=== PATIENT | female | born 2000 | race Caucasian/White ===

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

== ENCOUNTER 2020-05-17 14:27 | Emergency (ER) | payer OTHER ==
[2020-05-17 15:04] VITALS: BP 137/85; PULSE 91; RESP 20; TEMP 98.9
--- NOTE | 2020-05-17 15:35 | ED ---
General Adult HPI - General Chief complaint: Upper Respiratory Infection Stated complaint: COVID Test Time Seen by Provider: 05/17/20 15:00 Source: patient Mode of arrival: ambulatory Limitations: no limitations - History of Present Illness Initial comments: Patient is a 20-year-old female with no past medical history who presents to the emergency department requesting Covid testing. States that for the past 3 days the patient has suffered from fatigue, body aches, nonproductive cough, nasal congestion and a slight headache. She reports that her cousin has the same symptoms and was told that she is Covid positive. She has been in close contact with her on multiple occasions. Patient reported these symptoms to her boss to request that she go to the emergency department to get tested. Also reports to a loss of sense of smell. Denies any chest pain. No shortness of breath. No abdominal pain. Denies diarrhea, constipation, melenic stools or hematochezia. No changes or urination. No nausea or vomiting. Good by mouth intake. No concern for . No other alleviating, precipitating or modifying factors - Related Data Home Medications Medication Instructions Recorded Confirmed No Known Home Medications 09/22/17 08/17/18 Allergies Allergy/AdvReac Type Severity Reaction Status Date / Time No Known Allergies Allergy Verified 05/17/20 15:04 Review of Systems ROS Statement: Those systems with pertinent positive or pertinent negative responses have been documented in the HPI. ROS Other: All systems not noted in ROS Statement are negative. Past Medical History Past Medical History: No Reported History History of Any Multi-Drug Resistant Organisms: None Reported Past Surgical History: No Surgical Hx Reported Past Psychological History: No Psychological Hx Reported Smoking Status: Never smoker Past Alcohol Use History: None Reported Past Drug Use History: None Reported General Exam Limitations: no limitations General appearance: alert, in no apparent distress Head exam: Present: atraumatic, normocephalic, normal inspection Eye exam: Present: normal appearance, PERRL, EOMI. Absent: scleral icterus, conjunctival injection, periorbital swelling ENT exam: Present: normal exam, mucous membranes moist Neck exam: Present: normal inspection. Absent: tenderness, meningismus, lymphadenopathy Respiratory exam: Present: normal lung sounds bilaterally. Absent: respiratory distress, wheezes, rales, rhonchi, stridor Cardiovascular Exam: Present: regular rate, normal rhythm, normal heart sounds. Absent: systolic murmur, diastolic murmur, rubs, gallop, clicks GI/Abdominal exam: Present: soft, normal bowel sounds. Absent: distended, tenderness, guarding, rebound, rigid Extremities exam: Present: normal inspection, full ROM, normal capillary refill. Absent: tenderness, pedal edema, joint swelling, calf tenderness Back exam: Present: normal inspection Neurological exam: Present: alert, oriented X3, CN II-XII intact Psychiatric exam: Present: normal affect, normal mood Skin exam: Present: warm, dry, intact, normal color. Absent: rash Course Vital Signs 05/17/20 05/17/20 15:01 15:30 Temperature 98.9 F Pulse Rate 91 Respiratory 20 20 Rate Blood Pressure 137/85 O2 Sat by Pulse 98 Oximetry Medical Decision Making - Medical Decision Making Upon arrival patient is placed in room 22. There are history of physical exam was performed. No signs of respiratory distress. Patient has clear breath sounds. She is requesting Covid testing so that she may return to work. Swab was performed. Patient will be discharged home at this time. She is given recommendations for a primary care physician as she does not have one. Recommended she take Tylenol for fevers. Quarenteen herself until she has results of her Covid test or remains symptomatic. Return to the emergency room for any new or worsening symptoms. Patient agreed to the treatment plan and is discharged home stable condition Disposition Clinical Impression: Cough, Acute upper respiratory infection Disposition: HOME SELF-CARE Condition: Stable Instructions (If sedation given, give patient instructions): Upper Respiratory Infection (ED) Additional Instructions: Please await the results of your covid test. Quarantine yourself until your results are back and your symptoms improve. Take Tylenol for fevers. Return to the ED for any new or worsening symptoms. Is patient prescribed a controlled substance at d/c from ED?: No Referrals: None,Stated [Primary Care Provider] - 1-2 days Monique Myers MD [REFERRING] - 1-2 days Time of Disposition: 15:34
== END 2020-05-17 15:53 | disposition home or self-care (01) ==
LOC: EC 14:27
DX: U07.1 COVID-19 (principal)
CPT/HCPCS: 99284; U0003

== ENCOUNTER 2020-10-22 18:00 | Emergency (ER) | payer OTHER ==
[2020-10-22 18:43] VITALS: RESP 18
[2020-10-22 20:35] LABS: Appearance,Urine Clear (Clear); Bilirubin,Urine Negative (Negative); Blood,Urine Negative (Negative); Color,Urine Light Yellow; Glucose,Urine (UA) Negative (Negative); Ketones,Urine Negative (Negative); Leukocyte Esterase,Urine Negative (Negative); Nitrite,Urine Negative (Negative); PH, Urine 7.5 (5.0-8.0); Protein,Urine Negative (Negative); Specific Gravity,Urine 1.011 (1.001-1.035); Urobilinogen,Urine <2.0 mg/dL (<2.0)
[2020-10-22 21:32] LABS: ALT 13 U/L (4-34); AST 29 U/L (14-36); African American GFR (CKD) >90 (>60 ml/min/1.73 sqM); Albumin 4.4 g/dL (3.5-5.0); Alkaline Phosphatase 65 U/L (38-126); Anion Gap 8 mmol/L; Blood Urea Nitrogen 8 mg/dL (7-17); Calcium 9.2 mg/dL (8.4-10.2); Carbon Dioxide 25 mmol/L (22-30); Chloride 103 mmol/L (98-107); Glucose 92 mg/dL (74-99); Non-African American GFR(CKD) >90 (>60 ml/min/1.73 sqM); Potassium 4.2 mmol/L (3.5-5.1); Sodium 136 mmol/L (137-145); Total Bilirubin 0.5 mg/dL (0.2-1.3); Total Protein 7.7 g/dL (6.3-8.2)
[2020-10-22 21:39] LABS: HCT 41.3 % (34.0-46.0); HGB 14.2 gm/dL (11.4-16.0); MCHC 34.5 g/dL (31.0-37.0); RBC 4.75 m/uL (3.80-5.40); RDW 11.7 % (11.5-15.5); WBC 4.6 k/uL (3.8-10.6)
--- NOTE | 2020-10-22 22:12 | ED ---
Nausea/Vomiting/Diarrhea HPI - General Chief complaint: Nausea/Vomiting/Diarrhea Stated complaint: Adb pain Time Seen by Provider: 10/22/20 20:06 Source: patient Mode of arrival: ambulatory Limitations: no limitations - History of Present Illness Initial comments: 20yo with hx of anxieyt presenting for diarrhea increased x 1 week. Patient states that she has struggled with diarrhea chronically for the past few months. Patient states that for the past week it has increased and been more consistent. Patient denies fevers she states she does have occasional abdominal cramping that was worse this afternoon. He states he currently has decided against episodic. Patient denies any localized abdominal pain. She has a vaginal bleeding concern for she denies any nausea vomiting, or dark stools. She states one BM this week had a "vandana" of blood. Patient denies any gross hematuria dysuria urgency or frequency. She denies any large amounts of rectal bleeding. Patient has a known history of ulcerative colitis or Crohn's disease. Patient denies any upper respiratory symptoms. Remaining review of systems negative upon arrival patient appears well and nontoxic no acute distress. - Related Data Home Medications Medication Instructions Recorded Confirmed No Known Home Medications 09/22/17 10/22/20 Allergies Allergy/AdvReac Type Severity Reaction Status Date / Time No Known Allergies Allergy Verified 10/22/20 21:19 Review of Systems ROS Statement: Those systems with pertinent positive or pertinent negative responses have been documented in the HPI. ROS Other: All systems not noted in ROS Statement are negative. Past Medical History Past Medical History: No Reported History History of Any Multi-Drug Resistant Organisms: None Reported Past Surgical History: No Surgical Hx Reported Past Psychological History: Anxiety, Depression Smoking Status: Never smoker Past Alcohol Use History: Occasional Past Drug Use History: None Reported General Exam - General Exam Comments Initial Comments: General: The patient is awake and alert, in no distress Eye: +3 mm pupils are equal, round and reactive to light, extra-ocular movements are intact. No nystagmus. There is normal conjunctiva bilaterally. No signs of icterus. Ears, nose, mouth and throat: There are moist mucous membranes and no oral lesions. Neck: The neck is supple, there is no tenderness or JVD. Cardiovascular: There is a regular rate and rhythm. No murmur, rub or gallop is appreciated. Respiratory: Lungs are clear to auscultation, respirations are non-labored, breath sounds are equal. No wheezes, stridor, rales, or rhonchi. Gastrointestinal: [Soft, non-distended, non-tender abdomen without masses or organomegaly noted. There is no rebound or guarding present. Musculoskeletal: Normal ROM, no tenderness. Strength 5/5. Sensation intact. Radial and DP pulses equal bilaterally 2+. Neurological: A&O x 3. CN II-XII intact grossly, There are no obvious motor or sensory deficits. Coordination appears grossly intact. Speech is normal. Skin: Skin is warm and dry and no rashes or lesions are noted. Psychiatric: Cooperative, appropriate mood & affect, normal judgment. Limitations: no limitations Course Vital Signs 10/22/20 10/22/20 18:39 22:15 Temperature 98.1 F 97.9 F Pulse Rate 90 86 Respiratory 18 18 Rate Blood Pressure 106/73 115/68 O2 Sat by Pulse 100 Oximetry Medical Decision Making - Medical Decision Making Abdominal exam benign. Patient's vital signs within acceptable limits. She is afebrile. She denies any grossly bloody stools. Patient HgB stable. Patient unable to provide sample. UA unremarkable. At this time feel patient is stable for discharge with outpatient GI follow-up and discussed the case with attending provider who is agreeable to this care plan as well. - Lab Data Result diagrams: 10/22/20 21:18 10/22/20 21:18 Lab Results 10/22/20 10/22/20 10/22/20 Range/Units 20:26 20:26 21:18 WBC 4.6 (3.8-10.6) k/uL RBC 4.75 (3.80-5.40) m/uL Hgb 14.2 (11.4-16.0) gm/dL Hct 41.3 (34.0-46.0) % MCV 87.0 (80.0-100.0) fL MCH 30.0 (25.0-35.0) pg MCHC 34.5 (31.0-37.0) g/dL RDW 11.7 (11.5-15.5) % Plt Count (150-450) k/uL MPV 15.0 Neutrophils % (Manual) 41 % Band Neuts % (Manual) 8 % Lymphocytes % (Manual) 40 % Monocytes % (Manual) 11 % Neutrophils # (Manual) 2.20 (1.3-7.7) k/uL Lymphocytes # (Manual) 1.84 (1.0-4.8) k/uL Monocytes # (Manual) 0.51 (0-1.0) k/uL Nucleated RBCs 0 (0-0) /100 WBC Manual Slide Review Performed Sodium (137-145) mmol/L Potassium (3.5-5.1) mmol/L Chloride (98-107) mmol/L Carbon Dioxide (22-30) mmol/L Anion Gap mmol/L BUN (7-17) mg/dL Creatinine (0.52-1.04) mg/dL Est GFR (CKD-EPI)AfAm (>60 ml/min/1.73 sqM) Est GFR (CKD-EPI)NonAf (>60 ml/min/1.73 sqM) Glucose (74-99) mg/dL Calcium (8.4-10.2) mg/dL Total Bilirubin (0.2-1.3) mg/dL AST (14-36) U/L ALT (4-34) U/L Alkaline Phosphatase (38-126) U/L Total Protein (6.3-8.2) g/dL Albumin (3.5-5.0) g/dL Urine Color Light Yellow Urine Appearance Clear (Clear) Urine pH 7.5 (5.0-8.0) Ur Specific [place] 1.011 (1.001-1.035) Urine Protein Negative (Negative) Urine Glucose (UA) Negative (Negative) Urine Ketones Negative (Negative) Urine Blood Negative (Negative) Urine Nitrite Negative (Negative) Urine Bilirubin Negative (Negative) Urine Urobilinogen <2.0 (<2.0) mg/dL Ur Leukocyte Esterase Negative (Negative) Urine HCG, Qual Not Detected (Not Detectd) 10/22/20 Range/Units 21:18 WBC (3.8-10.6) k/uL RBC (3.80-5.40) m/uL Hgb (11.4-16.0) gm/dL Hct (34.0-46.0) % MCV (80.0-100.0) fL MCH (25.0-35.0) pg MCHC (31.0-37.0) g/dL RDW (11.5-15.5) % Plt Count (150-450) k/uL MPV Neutrophils % (Manual) % Band Neuts % (Manual) % Lymphocytes % (Manual) % Monocytes % (Manual) % Neutrophils # (Manual) (1.3-7.7) k/uL Lymphocytes # (Manual) (1.0-4.8) k/uL Monocytes # (Manual) (0-1.0) k/uL Nucleated RBCs (0-0) /100 WBC Manual Slide Review Sodium 136 L (137-145) mmol/L Potassium 4.2 (3.5-5.1) mmol/L Chloride 103 (98-107) mmol/L Carbon Dioxide 25 (22-30) mmol/L Anion Gap 8 mmol/L BUN 8 (7-17) mg/dL Creatinine 0.49 L (0.52-1.04) mg/dL Est GFR (CKD-EPI)AfAm >90 (>60 ml/min/1.73 sqM) Est GFR (CKD-EPI)NonAf >90 (>60 ml/min/1.73 sqM) Glucose 92 (74-99) mg/dL Calcium 9.2 (8.4-10.2) mg/dL Total Bilirubin 0.5 (0.2-1.3) mg/dL AST 29 (14-36) U/L ALT 13 (4-34) U/L Alkaline Phosphatase 65 (38-126) U/L Total Protein 7.7 (6.3-8.2) g/dL Albumin 4.4 (3.5-5.0) g/dL Urine Color Urine Appearance (Clear) Urine pH (5.0-8.0) Ur Specific [place] (1.001-1.035) Urine Protein (Negative) Urine Glucose (UA) (Negative) Urine Ketones (Negative) Urine Blood (Negative) Urine Nitrite (Negative) Urine Bilirubin (Negative) Urine Urobilinogen (<2.0) mg/dL Ur Leukocyte Esterase (Negative) Urine HCG, Qual (Not Detectd) Disposition Clinical Impression: Diarrhea, Abdominal cramping Disposition: HOME SELF-CARE Condition: Good Instructions (If sedation given, give patient instructions): Acute Nausea and Vomiting (ED), Acute Diarrhea (ED) Additional Instructions: Please use medication as discussed. Please follow-up with family doctor in the next 2 days, recommend outpatient GI in the next . Please return to emergency room if the symptoms increase or worsen or for any other concerns. Is patient prescribed a controlled substance at d/c from ED?: No Referrals: None,Stated [Primary Care Provider] - 1-2 days Eric Kent MD [STAFF PHYSICIAN] - 1-2 days Time of Disposition: 22:11
[2020-10-22 22:24] LABS: Band Neutrophils % 8 %; Lymphocytes # (M) 1.84 k/uL (1.0-4.8); Monocytes # (M) 0.51 k/uL (0-1.0); Neutrophils % (M) 41 %; Nucleated Red Blood Cells 0 /100 WBC (0-0); Total Cells Counted 100
[2020-10-22 22:25] VITALS: BP 115/68; PULSE 86; TEMP 97.9
== END 2020-10-22 22:15 | disposition home or self-care (01) ==
LOC: EC 18:00
DX: R19.7 Diarrhea, unspecified (principal); R10.9 Unspecified abdominal pain; R11.2 Nausea with vomiting, unspecified; F41.9 Anxiety disorder, unspecified; F32.9 Major depressive disorder, single episode, unspecified
CPT/HCPCS: 36415; 80053; 81003; 81025; 85025; 99284

== ENCOUNTER 2020-12-17 10:13 | Day surgery (SDC) | payer BC ==
[2020-12-13 10:07] VITALS: BMI 21.9
[~2020-12-17 10:13] MED LIST: LACTATED RINGERS 1,000 ML IV SCH; ONDANSETRON 4 MG/2 ML VIAL IVP PRN
[2020-12-17 11:00] VITALS: RESP 16; TEMP 98.6
[2020-12-17] MEDS ORDERED: LIDOCAINE 1% (10MG/ML) FOR IV START INTRADERMA ONE (11:10)
[2020-12-17] MEDS ORDERED: PROPOFOL 10 MG/ML 20 ML VIAL IV ONE (11:41)
[2020-12-17] MEDS ORDERED: LIDOCAINE 1% INJ 10MG/ML (20 ML MDV) ONE (11:41)
--- NOTE | 2020-12-17 12:10 | P.PCN ---
Date of Procedure: 12/17/20 Description of Procedure: BRIEF HISTORY: Patient is a 20-year-old female presenting for outpatient colonoscopy for evaluation of symptoms of change in bowel habits. Patient reports worsening constipation was seen in the outpatient setting reporting going weeks without bowel movements. She was started on MiraLAX therapy which she is currently taking daily and reporting approximately 2 bowel movements per week. PROCEDURE PERFORMED: Colonoscopy. PREOPERATIVE DIAGNOSIS: Change in bowel habits, no prior colonoscopy. ESTIMATED BLOOD LOSS: Minimal. IV sedation per Anesthesia. PROCEDURE: After informed consent was obtained, the patient, was brought into the endoscopy unit. IV sedation was administered by Anesthesia under continuous monitoring. Digital rectal examination was normal. Initially the Olympus CF-190 flexible video colonoscope was then inserted in the rectum, gradually advanced into the cecum without any difficulty. Careful examination was performed as the scope was gradually being withdrawn. Ileocecal valve and the appendiceal orifice were visualized and appeared normal. Prep was was poor with a large amount of liquid stool throughout the entire colon. Mucosa of the cecum, ascending colon, transverse colon, descending colon, sigmoid colon, and rectum appeared normal appeared normal however poor prep prohibited complete visualization of the mucosa . Retroflexion was performed in the rectum and no lesions were seen. The patient tolerated the procedure well. IMPRESSION: Normal-appearing colon from rectum to cecum, however complete visualization of the mucosa was prohibited by poor prep. Poor prep. RECOMMENDATIONS: Findings of this examination were discussed with the patient and her mother. Okay to resume diet. Okay to resume medications. Recommendation is for increasing MiraLAX to twice daily. Follow up in the GI clinic as scheduled. If no improvement in symptoms can consider repeat colonoscopy due to poor prep.
[2020-12-17 12:42] VITALS: BP 120/23; PULSE 62
== END 2020-12-17 13:15 | disposition home or self-care (01) ==
LOC: ORWHC2ENDO 10:13
PROVIDERS: ATTEND Internal Medicine
DX: K59.00 Constipation, unspecified (principal); Z91.040 Latex allergy status; Z98.890 Other specified postprocedural states
CPT/HCPCS: 81025; 45378; J2001; J2704

== ENCOUNTER 2021-05-13 22:22 | Emergency (ER) | payer OTHER ==
[2021-05-13] MEDS ORDERED: SODIUM CHLORIDE 0.9% 1,000 ML IV ONE (23:20)
[2021-05-13] MEDS ORDERED: ONDANSETRON 4 MG/2 ML VIAL IVP STA (23:20)
[2021-05-14] MEDS ORDERED: DEXTROSE 5%-0.45% NACL 1,000 ML IV ONE (00:51)
[2021-05-14 00:55] LABS: ALT 12 U/L (4-34); AST 27 U/L (14-36); African American GFR (CKD) >90 (>60 ml/min/1.73 sqM); Alkaline Phosphatase 72 U/L (38-126); Anion Gap 14 mmol/L; Blood Urea Nitrogen 8 mg/dL (7-17); Calcium 10.2 mg/dL (8.4-10.2); Carbon Dioxide 22 mmol/L (22-30); Chloride 100 mmol/L (98-107); Glucose 78 mg/dL (74-99); Non-African American GFR(CKD) >90 (>60 ml/min/1.73 sqM); Potassium 3.8 mmol/L (3.5-5.1); Sodium 136 mmol/L (137-145); Total Bilirubin 0.6 mg/dL (0.2-1.3); Total Protein 8.7 g/dL (6.3-8.2)
[2021-05-14 00:57] LABS: Basophils % (A) 1 %; Eosinophils # (A) 0.1 k/uL (0-0.7); Eosinophils % (A) 2 %; HCT 40.9 % (34.0-46.0); HGB 14.5 gm/dL (11.4-16.0); Lymphocytes # (A) 2.6 k/uL (1.0-4.8); Lymphocytes % (A) 31 %; MCH 30.7 pg (25.0-35.0); MCHC 35.4 g/dL (31.0-37.0); MCV 86.7 fL (80.0-100.0); Mean Platelet Volume 12.9; Monocytes # (A) 0.4 k/uL (0-1.0); Monocytes % (A) 5 %; Neutrophils % (A) 61 %; Platelet Count 237 k/uL (150-450); RBC 4.71 m/uL (3.80-5.40); WBC 8.2 k/uL (3.8-10.6)
[2021-05-14 01:49] LABS: Appearance,Urine Cloudy (Clear); Bacteria,Urine Rare /hpf; Bilirubin,Urine Negative (Negative); Blood,Urine Negative (Negative); Color,Urine Yellow; Glucose,Urine (UA) Negative (Negative); Hyaline Casts,Urine 1 /lpf (0-2); Ketones,Urine 4+ (Negative); Leukocyte Esterase,Urine Large (Negative); Mucus,Urine Few /hpf; Nitrite,Urine Negative (Negative); PH, Urine 5.5 (5.0-8.0); Protein,Urine Trace (Negative); RBC,Urine 2 /hpf (0-5); Specific Gravity,Urine 1.025 (1.001-1.035); Squamous Epithelial Cell,Urine 8 /hpf (0-4); Urobilinogen,Urine <2.0 mg/dL (<2.0); WBC,Urine 36 /hpf (0-5)
[2021-05-14 02:31] LABS: Large Platelets Present
--- NOTE | 2021-05-14 05:01 | ED ---
Nausea/Vomiting/Diarrhea HPI - General Chief complaint: Nausea/Vomiting/Diarrhea Stated complaint: Poss Dehydration, 11 Wks preg Time Seen by Provider: 05/13/21 23:20 Source: patient Mode of arrival: ambulatory Limitations: no limitations - History of Present Illness Initial comments: Patient is 21-year-old woman who states she is approximately 11 weeks and is having problems with vomiting. This is been going back a number days and she is not keeping very much down. No hematemesis. Some occasional diffuse abdominal cramping. No vaginal discharge or bleeding. MD complaint: nausea, vomiting -: days(s) Description of Vomiting: food contents Location: diffuse Severity: mild Quality: cramping Consistency: constant Improves with: none Worsens with: none Associated Symptoms: nausea/vomiting - Related Data Previous Rx's Medication Instructions Recorded Cephalexin [Keflex] 500 mg PO Q6HR #28 cap 05/14/21 Allergies Allergy/AdvReac Type Severity Reaction Status Date / Time latex Allergy Rash/Hives Verified 05/13/21 23:08 Review of Systems ROS Statement: Those systems with pertinent positive or pertinent negative responses have been documented in the HPI. ROS Other: All systems not noted in ROS Statement are negative. Constitutional: Denies: fever Respiratory: Denies: cough, dyspnea Cardiovascular: Denies: chest pain, edema Gastrointestinal: Reports: abdominal pain, nausea, vomiting. Denies: diarrhea, constipation, hematemesis, melena, hematochezia Genitourinary: Denies: dysuria, frequency, hematuria, discharge, abnormal menses Musculoskeletal: Denies: back pain Skin: Denies: rash Neurological: Denies: headache, weakness Past Medical History Past Medical History: GERD/Reflux Additional Past Medical History / Comment(s): irregular bowel movements: diarrhea for 2 weeks, then went over 1 month with no bowel movement, then started having bowel movements with blood, last bowel movement 6 days ago, History of Any Multi-Drug Resistant Organisms: None Reported Past Surgical History: No Surgical Hx Reported Additional Past Surgical History / Comment(s): WISDOM TEETH Past Anesthesia/Blood Transfusion Reactions: No Reported Reaction Past Psychological History: Anxiety, Depression Smoking Status: Never smoker Past Alcohol Use History: None Reported Past Drug Use History: None Reported - Past Family History Mother Family Medical History: No Reported History General Exam Limitations: no limitations General appearance: alert, in no apparent distress Head exam: Present: atraumatic, normocephalic Eye exam: Present: normal appearance. Absent: scleral icterus, conjunctival injection Neck exam: Present: normal inspection Respiratory exam: Present: normal lung sounds bilaterally. Absent: respiratory distress, wheezes, rales, rhonchi, stridor Cardiovascular Exam: Present: regular rate, normal rhythm, systolic murmur. Absent: diastolic murmur, rubs, gallop GI/Abdominal exam: Present: soft. Absent: distended, tenderness, guarding, rebound, rigid, mass Extremities exam: Present: normal inspection, normal capillary refill. Absent: pedal edema, calf tenderness Back exam: Present: normal inspection. Absent: CVA tenderness (R), CVA tenderness (L) Neurological exam: Present: alert Skin exam: Present: warm, dry, intact, normal color. Absent: rash Course Vital Signs 05/13/21 05/14/21 05/14/21 23:04 04:08 05:32 Temperature 98.9 F 98.4 F Pulse Rate 72 74 96 Respiratory 20 18 18 Rate Blood Pressure 120/73 127/84 106/71 O2 Sat by Pulse 100 100 100 Oximetry Medical Decision Making - Lab Data Result diagrams: 05/13/21 00:09 05/13/21 00:09 Lab Results 05/13/21 05/13/21 05/14/21 Range/Units 00:09 00:09 01:22 WBC 8.2 (3.8-10.6) k/uL RBC 4.71 (3.80-5.40) m/uL Hgb 14.5 (11.4-16.0) gm/dL Hct 40.9 (34.0-46.0) % MCV 86.7 (80.0-100.0) fL MCH 30.7 (25.0-35.0) pg MCHC 35.4 (31.0-37.0) g/dL RDW 12.0 (11.5-15.5) % Plt Count 237 (150-450) k/uL MPV 12.9 Neutrophils % 61 % Lymphocytes % 31 % Monocytes % 5 % Eosinophils % 2 % Basophils % 1 % Neutrophils # 5.0 (1.3-7.7) k/uL Lymphocytes # 2.6 (1.0-4.8) k/uL Monocytes # 0.4 (0-1.0) k/uL Eosinophils # 0.1 (0-0.7) k/uL Basophils # 0.0 (0-0.2) k/uL Manual Slide Review Performed Large Platelets Present Sodium 136 L (137-145) mmol/L Potassium 3.8 (3.5-5.1) mmol/L Chloride 100 (98-107) mmol/L Carbon Dioxide 22 (22-30) mmol/L Anion Gap 14 mmol/L BUN 8 (7-17) mg/dL Creatinine 0.35 L (0.52-1.04) mg/dL Est GFR (CKD-EPI)AfAm >90 (>60 ml/min/1.73 sqM) Est GFR (CKD-EPI)NonAf >90 (>60 ml/min/1.73 sqM) Glucose 78 (74-99) mg/dL Calcium 10.2 (8.4-10.2) mg/dL Total Bilirubin 0.6 (0.2-1.3) mg/dL AST 27 (14-36) U/L ALT 12 (4-34) U/L Alkaline Phosphatase 72 (38-126) U/L Total Protein 8.7 H (6.3-8.2) g/dL Albumin 5.0 (3.5-5.0) g/dL Urine Color Yellow Urine Appearance Cloudy H (Clear) Urine pH 5.5 (5.0-8.0) Ur Specific [place] 1.025 (1.001-1.035) Urine Protein Trace H (Negative) Urine Glucose (UA) Negative (Negative) Urine Ketones 4+ H (Negative) Urine Blood Negative (Negative) Urine Nitrite Negative (Negative) Urine Bilirubin Negative (Negative) Urine Urobilinogen <2.0 (<2.0) mg/dL Ur Leukocyte Esterase Large H (Negative) Urine RBC 2 (0-5) /hpf Urine WBC 36 H (0-5) /hpf Ur Squamous Epith Cells 8 H (0-4) /hpf Urine Bacteria Rare H (None) /hpf Hyaline Casts 1 (0-2) /lpf Urine Mucus Few H (None) /hpf Coronavirus (PCR) (Not Detectd) 05/14/21 Range/Units 01:36 WBC (3.8-10.6) k/uL RBC (3.80-5.40) m/uL Hgb (11.4-16.0) gm/dL Hct (34.0-46.0) % MCV (80.0-100.0) fL MCH (25.0-35.0) pg MCHC (31.0-37.0) g/dL RDW (11.5-15.5) % Plt Count (150-450) k/uL MPV Neutrophils % % Lymphocytes % % Monocytes % % Eosinophils % % Basophils % % Neutrophils # (1.3-7.7) k/uL Lymphocytes # (1.0-4.8) k/uL Monocytes # (0-1.0) k/uL Eosinophils # (0-0.7) k/uL Basophils # (0-0.2) k/uL Manual Slide Review Large Platelets Sodium (137-145) mmol/L Potassium (3.5-5.1) mmol/L Chloride (98-107) mmol/L Carbon Dioxide (22-30) mmol/L Anion Gap mmol/L BUN (7-17) mg/dL Creatinine (0.52-1.04) mg/dL Est GFR (CKD-EPI)AfAm (>60 ml/min/1.73 sqM) Est GFR (CKD-EPI)NonAf (>60 ml/min/1.73 sqM) Glucose (74-99) mg/dL Calcium (8.4-10.2) mg/dL Total Bilirubin (0.2-1.3) mg/dL AST (14-36) U/L ALT (4-34) U/L Alkaline Phosphatase (38-126) U/L Total Protein (6.3-8.2) g/dL Albumin (3.5-5.0) g/dL Urine Color Urine Appearance (Clear) Urine pH (5.0-8.0) Ur Specific [place] (1.001-1.035) Urine Protein (Negative) Urine Glucose (UA) (Negative) Urine Ketones (Negative) Urine Blood (Negative) Urine Nitrite (Negative) Urine Bilirubin (Negative) Urine Urobilinogen (<2.0) mg/dL Ur Leukocyte Esterase (Negative) Urine RBC (0-5) /hpf Urine WBC (0-5) /hpf Ur Squamous Epith Cells (0-4) /hpf Urine Bacteria (None) /hpf Hyaline Casts (0-2) /lpf Urine Mucus (None) /hpf Coronavirus (PCR) Not Detected (Not Detectd) Disposition Clinical Impression: Hyperemesis gravidarum, Urinary tract infection Disposition: HOME SELF-CARE Condition: Good Instructions (If sedation given, give patient instructions): Hyperemesis Gravidarum (ED), Urinary Tract Infection in (ED) Prescriptions: Cephalexin [Keflex] 500 mg PO Q6HR #28 cap Is patient prescribed a controlled substance at d/c from ED?: No Referrals: None,Stated [Primary Care Provider] - 1-2 days
[2021-05-14 05:26] VITALS: RESP 18
[2021-05-14 05:36] VITALS: BP 106/71; PULSE 96; TEMP 98.4
== END 2021-05-14 05:43 | disposition home or self-care (01) ==
LOC: EC 22:22
DX: O21.0 Mild hyperemesis gravidarum (principal); O23.41 Unspecified infection of urinary tract in pregnancy, first trimester; O99.611 Diseases of the digestive system complicating pregnancy, first trimester; K21.9 Gastro-esophageal reflux disease without esophagitis; Z3A.11 11 weeks gestation of pregnancy
CPT/HCPCS: 36415; 80053; 85025; 81001; 87635; 96365; 96375; 96361; 99284; J2405; J0696

== ENCOUNTER → 2021-05-19 | Outpatient (CLI) | payer OTHER ==
--- NOTE | 2021-05-19 15:51 | US ---
EXAMINATION TYPE: Transabdominal DATE OF EXAM: 05/19/2021 1:57 PM COMPARISON: NONE CLINICAL HISTORY: Z36 confirm dates. Cramping EXAM PERFORMED: Transabdominal (TA) EXAM MEASUREMENTS: GESTATIONAL AGE / DATING Dates by LMP: (12 weeks/5 days) EDC: 11/23/21 Dates by Current Scan for: (11 weeks/0 days) EDC: 12/08/21 MATERNAL ANATOMY Uterus: 11.0 x 8.7 x 7.6 Right Ovary: 3.3 x 2.5 x 1.9 Left Ovary: 3.5 x 2.8 x 1.8 Presence of free fluid: None Presence of subchorionic bleed: None GESTATION / SURVEY CRL: 4.21 (11 weeks/1 days) MSD: 5.1 (10 weeks/6 days) Yolk Sac (normal less than 6mm): 0.5 Heart Rate: 166 bpm Rhythm: Normal IUP: Viable IUP Date of LMP: 02/19/21 Beta HcG (if available): Not available at this time IMPRESSION: Single live intrauterine measuring approximately 11 weeks and 1 day by sonographic criteria .
== END | disposition home or self-care (01) ==
LOC: RADUSWWP 13:28
PROVIDERS: ATTEND Obstetrics & Gynecology
DX: Z34.81 Encounter for supervision of other normal pregnancy, first trimester (principal); Z3A.11 11 weeks gestation of pregnancy
CPT/HCPCS: 76801

== ENCOUNTER 2021-12-01 16:12 | Inpatient (IN) | payer OTHER ==
[2021-12-01] MEDS ORDERED: DINOPROSTONE 10 MG INSERT.ER VAGINAL ONE (16:31)
[2021-12-01] MEDS ORDERED: CITRIC ACID-SODIUM CITRATE 15 ML CUP PO ONE (17:25)
--- NOTE | 2021-12-01 18:12 | P.HPOB ---
History of Present Illness H&P Date: 12/01/21 Chief Complaint: Maternal discomfort, requests induction of labor This patient is a pleasant 21-year-old 2 para 0 female estimated date of confinement 12/08/2021 estimated gestational age 39 and one sevenths weeks who presents to labor and delivery for requested induction of labor secondary to maternal discomfort. 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 Patient subsequently has moved back to [place] at 36 weeks and resumed care here. has been uncomplicated otherwise. She is uncomfortable is now requesting induction. Review of Systems Genitourinary: Reports Menstruation: Reports amenorrhea Past Medical History Past Medical History: GERD/Reflux History of Any Multi-Drug Resistant Organisms: None Reported Past Surgical History: No Surgical Hx Reported Additional Past Surgical History / Comment(s): WISDOM TEETH Past Anesthesia/Blood Transfusion Reactions: No Reported Reaction Past Psychological History: Anxiety, Depression Additional Psychological History / Comment(s): depression comes and goes, NOT ON ANY RX AT HIS TIME Smoking Status: Never smoker Past Alcohol Use History: None Reported Past Drug Use History: None Reported - Past Family History Mother Family Medical History: No Reported History Medications and Allergies Home Medications Medication Instructions Recorded Confirmed Type Pantoprazole [Protonix] 20 mg PO DAILY 12/01/21 12/01/21 History Promethazine HCl 12.5 mg PO DAILY 12/01/21 12/01/21 History Allergies Allergy/AdvReac Type Severity Reaction Status Date / Time latex Allergy Rash/Hives Verified 12/01/21 16:31 Exam Vital Signs Temp Pulse Resp BP 12/01/21 16:43 98.2 F 125 H 17 124/77 Intake and Output 12/01/21 12/01/21 12/01/21 06:59 14:59 22:59 Other: Weight 64.41 kg - OBG Physical Exam Abdomen: bowel sounds normal, no diffuse tenderness, no bruit present, no guarding noted, no hepatomegaly, no splenomegaly, no mass Vulva: both: normal Vagina: normal moisture, no discharge Cervix: no lesion (Cervix is 1-2 cm thick), no discharge Uterus: enlarged (Fundal height is 37 cm) Results labs show she is O positive, rubella immune, RPR nonreactive, HIV is nonreactive, hepatitis B was negative, Glucola was normal at 129. Most recent ultrasound on November 18 showed estimated weight to 7 lbs. 6 oz. Group B strep was negative Assessment and Plan Assessment: This is a pleasant 21-year-old 2 para 0 female 39 and one sevenths weeks gestation admitted to labor and delivery for requested inspection of labor secondary to maternal discomfort. Secondary to unfavorable cervix I recommended she received Cervidil placement this evening. Patient understands induction process and all questions are answered. (1) 39 weeks gestation of Current Visit: Yes Status: Acute Code(s): Z3A.39 - 39 WEEKS GESTATION OF SNOMED Code(s): 79670261 (2) Elective induction of labor planned Current Visit: Yes Status: Acute Code(s): [id number] - SNOMED Code(s): 628415407
[2021-12-01] MEDS: LACTATED RINGERS 1,000 ML IV SCH (21:16)
[2021-12-01] MEDS ORDERED: TERBUTALINE 1 MG/ML VIAL SQ PRN (21:25)
[2021-12-01] MEDS ORDERED: CARBOPROST TROMETHAMINE 250 MCG/ML 1 ML AMP IM PRN (21:25)
[2021-12-01] MEDS ORDERED: LIDOCAINE 1% (PF) 10 MG/ML (30 ML SDV) SQ PRN (21:25)
[2021-12-01] MEDS ORDERED: OXYTOCIN 30 UNITS/500 ML NS 30 UNIT in SALINE 1 500ML.BAG IV SCH (21:25)
[2021-12-01] MEDS ORDERED: OXYTOCIN 10 UNIT/ML 1 ML VIAL IM PRN (21:25)
[2021-12-01] MEDS ORDERED: METHYLERGONOVINE 0.2 MG/ML 1 ML AMP IM PRN (21:25)
[2021-12-01] MEDS: BUTORPHANOL 1 MG/ML 1 ML VIAL IV PRN (21:31)
[2021-12-01 21:41] LABS: Basophils % (A) 0 %; Eosinophils # (A) 0.2 k/uL (0-0.7); Eosinophils % (A) 2 %; HCT 33.1 % (34.0-46.0); HGB 10.4 gm/dL (11.4-16.0); Hypochromasia Moderate; Lymphocytes # (A) 2.5 k/uL (1.0-4.8); Lymphocytes % (A) 24 %; MCH 25.5 pg (25.0-35.0); MCHC 31.4 g/dL (31.0-37.0); MCV 81.3 fL (80.0-100.0); Monocytes # (A) 0.4 k/uL (0-1.0); Monocytes % (A) 4 %; Neutrophils # (A) 6.9 k/uL (1.3-7.7); Neutrophils % (A) 66 %; Platelet Count 339 k/uL (150-450); Poikilocytosis Slight; RBC 4.07 m/uL (3.80-5.40); RDW 13.9 % (11.5-15.5); WBC 10.3 k/uL (3.8-10.6)
[2021-12-02] MEDS: LACTATED RINGERS 1,000 ML IV SCH ×2 (00:21→22:41)
[2021-12-02] MEDS: BUTORPHANOL 1 MG/ML 1 ML VIAL IV PRN ×2 (00:22→03:01)
--- NOTE | 2021-12-02 06:03 | P.PN ---
Progress Note - Text Progress Note Date: 12/02/21 Patient became very uncomfortable with her Cervidil was removed and she's approximately 3 cm dilated 50% effaced -2 station. heart tones are Category 1. She is received an epidural for pain control with good relief. Plan is to proceed with Pitocin augmentation today.
[2021-12-02] MEDS ORDERED: ROPIVACAINE 100 MG, fentaNYL (PF). 200 MCG in SODIUM CHLORIDE 0.9% 76 ML EPIDURAL ONE (07:38)
[2021-12-02] MEDS ORDERED: OXYTOCIN 30 UNITS/500 ML NS 30 UNIT in SALINE 1 500ML.BAG IV SCH (08:42)
[2021-12-02] MEDS ORDERED: BENZOCAINE/MENTHOL SPRAY 1 GM/SPRAY AEROSOL TOPICAL PRN (08:42)
[2021-12-02] MEDS ORDERED: diphenhydrAMINE 25 MG CAP PO PRN (08:42)
[2021-12-02] MEDS ORDERED: LANOLIN CREAM 5 GM TUBE TOPICAL PRN (08:42)
[2021-12-02] MEDS ORDERED: SIMETHICONE 80 MG CHEWABLE PO PRN (08:42)
[2021-12-02] MEDS ORDERED: bisacodyL 10 MG SUPP RECTAL PRN (08:42)
[2021-12-02] MEDS ORDERED: ZOLPIDEM 5 MG TAB PO PRN (08:42)
[2021-12-02] MEDS ORDERED: diphenhydrAMINE 50 MG/ML 1 ML VIAL IVP PRN (08:42)
[2021-12-02] MEDS ORDERED: HYDROCORTISONE 2.5% RECTAL CREAM 30 GM TUBE RECTAL PRN (08:42)
[2021-12-02 09:00] VITALS: RESP 16
--- NOTE | 2021-12-02 12:19 | P.PROBDLV ---
Vaginal Delivery Note - . Vaginal Delivery Note: Normal vaginal delivery viable female Apgars 9 and 9 delivery time is 0819 hrs. Please see dictated H&P for intimate details of this patient's admission. Brief summary this is a pleasant 21-year-old 2 para 0 female 39 and one sevenths weeks gestation admitted last evening for Cervidil placement for induction. Patient is 1 cm dilated and thick at that time Cervidil is placed. Patient becomes quite uncomfortable throughout the night and approximately 4:30 she is 2 cm dilated and asks for epidural. This is given with excellent relief. At this time patient has artificial rupture membranes for clear fluid. She is approximately 3-4 cm at this time. Heart tones are category 1. Patient's labor thereafter progresses very quickly and she gets to complete. She pushes the head to the perineum and the posterior perineum is supported we have controlled delivery of the infant's head over the intact perineum. Infant's head is straight occiput anterior presentation. Mouth and nares are bulb suctioned. There is no evidence of nuchal cord. With gentle downward traction we then have delivery the anterior and posterior shoulder and rest this infant's body. This is a vigorous viable female Apgars are 9 and 9 delivery time was 0819 hours. Infant is laid on the mother's abdomen. After the cord is done pulsating, the umbilical cord is doubly clamped and cut. The placenta is then spontaneously delivered intact. Estimated blood loss approximately 100 mL. There are no lacerations and no repairs required. All counts are correct 3. There are no complications. and mother stable delivery room.
[2021-12-02] MEDS: IBUPROFEN 600 MG TAB PO PRN (17:08)
[2021-12-02] MEDS: ACETAMINOPHEN TAB 325 MG TAB PO PRN (20:21)
[2021-12-02] MEDS: SENNOSIDES-DOCUSATE SODIUM 1 EACH TAB PO SCH (20:21)
[2021-12-03] MEDS: IBUPROFEN 600 MG TAB PO PRN (05:51)
[2021-12-03 05:57] LABS: Basophils % (A) 0 %; Eosinophils # (A) 0.3 k/uL (0-0.7); Eosinophils % (A) 2 %; HCT 28.3 % (34.0-46.0); Hypochromasia Marked; Lymphocytes # (A) 2.9 k/uL (1.0-4.8); Lymphocytes % (A) 25 %; MCH 25.8 pg (25.0-35.0); MCHC 31.7 g/dL (31.0-37.0); MCV 81.2 fL (80.0-100.0); Mean Platelet Volume 12.8; Monocytes # (A) 0.5 k/uL (0-1.0); Monocytes % (A) 5 %; Neutrophils # (A) 7.6 k/uL (1.3-7.7); Neutrophils % (A) 65 %; Platelet Count 273 k/uL (150-450); Poikilocytosis Slight; RBC 3.49 m/uL (3.80-5.40); RDW 14.1 % (11.5-15.5); WBC 11.6 k/uL (3.8-10.6)
--- NOTE | 2021-12-03 06:22 | P.PNOBGVD ---
Subjective - Subjective Patient reports: Reports appetite normal, Reports voiding normally, Reports pain well controlled, Reports ambulating normally : doing well Objective - Latest Vital Signs Latest vital signs: Vital Signs Temp Pulse Resp BP Pulse Ox 12/02/21 23:55 97.9 F 69 16 117/76 99 12/02/21 20:00 98.1 F 68 16 129/82 98 12/02/21 16:00 98.2 F 72 16 125/65 12/02/21 12:00 98.5 F 89 16 123/58 12/02/21 10:49 98.5 F 68 16 125/64 12/02/21 10:19 97.9 F 70 16 122/62 12/02/21 09:49 98.4 F 68 16 124/64 12/02/21 09:34 98.1 F 72 16 116/58 12/02/21 09:19 72 16 122/56 12/02/21 09:04 98.1 F 72 16 123/58 12/02/21 08:49 98.1 F 75 16 126/70 Intake and Output 12/02/21 12/02/21 12/03/21 14:59 22:59 06:59 Intake Total 250 Output Total 625 Balance -625 250 Intake: Oral 250 Output: Output, Quantitative 625 Blood Loss Other: # Voids 1 # Bowel Movements 1 - Exam Lungs: bilateral: normal Chest: Normal S1, Normal S2 Extremities: Present: normal Abdomen: Present: normal appearance, soft Uterus: Present: normal, firm - Labs Labs: Abnormal Lab Results - Last 24 Hours (Table) 12/03/21 Range/Units 05:11 WBC 11.6 H (3.8-10.6) k/uL RBC 3.49 L (3.80-5.40) m/uL Hgb 9.0 L (11.4-16.0) gm/dL Hct 28.3 L (34.0-46.0) % Assessment and Plan Assessment: day #1. Patient is resting without complaints and wishes to go home. Vital signs are stable she's afebrile. Uterus is firm nontender and she is having normal lochia. My impression this is a normal course. Plan is to continue routine care discharge home later today (1) 39 weeks gestation of Current Visit: Yes Status: Acute Code(s): Z3A.39 - 39 WEEKS GESTATION OF SNOMED Code(s): 55136180 (2) Elective induction of labor planned Current Visit: Yes Status: Acute Code(s): [id number] - SNOMED Code(s): 314406099
--- NOTE | 2021-12-03 06:25 | P.DS ---
Providers Date of admission: 12/01/21 16:12 Expected date of discharge: 12/03/21 Attending physician: Mj Davis Primary care physician: Stated None - Discharge Diagnosis(es) (1) 39 weeks gestation of Current Visit: Yes Status: Acute (2) Elective induction of labor planned Current Visit: Yes Status: Acute Hospital Course: Please see dictated H&P for intimate details of this patient's admission. Brief summary is a pleasant 21-year-old 2 para 0 female estimated gestational age 39 weeks presented for two-stage induction of labor. Patient is uncomplicated induction of labor quickly goes on have a vaginal delivery viable female infant. Please see dictated delivery note. day #1 patient without complaints and wishes to go home. Patient's felt be stable for discharge home follow up with me in 6 weeks. Procedures: Induction of labor and normal vaginal delivery Patient Condition at Discharge: Good Plan - Discharge Summary New Discharge Prescriptions: New Ibuprofen [Motrin] 600 mg PO Q6HR PRN #30 tab PRN Reason: Mild Pain (Scale 1 To 3) No Action Pantoprazole [Protonix] 20 mg PO DAILY Promethazine HCl 12.5 mg PO DAILY Discharge Medication List Pantoprazole [Protonix] 20 mg PO DAILY 12/01/21 [History] Promethazine HCl 12.5 mg PO DAILY 12/01/21 [History] Ibuprofen [Motrin] 600 mg PO Q6HR PRN #30 tab 12/03/21 [Rx] Follow up Appointment(s)/Referral(s): Mj Davis MD [STAFF PHYSICIAN] - 01/14/22 3:00 pm Patient Instructions/Handouts: Vaginal Delivery (DC) Activity/Diet/Wound Care/Special Instructions: No intercourse or anything per vagina for 6 weeks. Please call if any fever, chills, excessive vaginal bleeding, and/or abdominal pain. Discharge Disposition: HOME SELF-CARE
[2021-12-03 08:12] VITALS: BP 117/73; PULSE 86; TEMP 98.1
[2021-12-03] MEDS: SENNOSIDES-DOCUSATE SODIUM 1 EACH TAB PO SCH (08:14)
[2021-12-03] MEDS: ACETAMINOPHEN TAB 325 MG TAB PO PRN (08:18)
== END 2021-12-03 10:35 | disposition home or self-care (01) | DRG 807 ==
LOC: 4FBP 16:12
PROVIDERS: ADMIT Obstetrics & Gynecology; ATTEND Obstetrics & Gynecology
PROC: 10E0XZZ Delivery of Products of Conception, External Approach (ICD-10-PCS; principal; 2021-12-01)
DX: O80 Encounter for full-term uncomplicated delivery (principal); Z37.0 Single live birth; Z3A.39 39 weeks gestation of pregnancy
CPT/HCPCS: 85025; 86850; 86900; 86901

== ENCOUNTER 2022-04-18 12:22 | Emergency (ER) | payer OTHER ==
[2022-04-18 12:41] VITALS: RESP 16; TEMP 98.2
--- NOTE | 2022-04-18 14:42 | ED ---
Female Urogenital HPI - General Chief complaint: Urogenital Stated complaint: hematuria Time Seen by Provider: 04/18/22 14:07 Source: patient, RN notes reviewed Mode of arrival: ambulatory Limitations: no limitations - History of Present Illness Initial comments: This is a 22-year-old female who presents to the emergency department for hematuria. She was sent over by urgent care for concerns of post strep glomerulonephritis. She had a sore throat last week and took the amoxicillin that she had at home from a leftover prescription. She was not evaluated by a provider or tested for strep throat. Over the last 2-3 days, she has had light pink blood in her urine that has progressed to rosaline hematuria. Denies any pain or other symptoms. She is 4 months and is currently breast feeding. Denies any fevers, chills, sore throat, cough, dyspnea, chest pain, palpitations, abdominal pain, nausea, vomiting, diarrhea, back pain, or headaches. MD Complaint: other (hematuria) Onset/Timin -: days(s) Patient : No - Related Data Home Medications Medication Instructions Recorded Confirmed Pantoprazole [Protonix] 20 mg PO DAILY 12/01/21 12/01/21 Promethazine HCl 12.5 mg PO DAILY 12/01/21 12/01/21 Previous Rx's Medication Instructions Recorded Ibuprofen [Motrin] 600 mg PO Q6HR PRN #30 tab 12/03/21 Allergies Allergy/AdvReac Type Severity Reaction Status Date / Time latex Allergy Rash/Hives Verified 12/01/21 16:31 Review of Systems ROS Statement: Those systems with pertinent positive or pertinent negative responses have been documented in the HPI. ROS Other: All systems not noted in ROS Statement are negative. Past Medical History Past Medical History: GERD/Reflux Additional Past Medical History / Comment(s): irregular bowel movements: diarrhea for 2 weeks, then went over 1 month with no bowel movement, then started having bowel movements with blood, last bowel movement today, History of Any Multi-Drug Resistant Organisms: None Reported Past Surgical History: No Surgical Hx Reported Additional Past Surgical History / Comment(s): WISDOM TEETH Past Anesthesia/Blood Transfusion Reactions: No Reported Reaction Past Psychological History: Anxiety, Depression Smoking Status: Never smoker Past Alcohol Use History: None Reported Past Drug Use History: None Reported - Past Family History Mother Family Medical History: No Reported History General Exam Limitations: no limitations General appearance: alert, in no apparent distress Head exam: Present: atraumatic, normocephalic, normal inspection Respiratory exam: Present: normal lung sounds bilaterally. Absent: respiratory distress, wheezes, rales, rhonchi, stridor Cardiovascular Exam: Present: regular rate, normal rhythm, normal heart sounds. Absent: systolic murmur, diastolic murmur, rubs, gallop, clicks GI/Abdominal exam: Present: soft, normal bowel sounds. Absent: distended, tenderness, guarding, rebound, rigid Neurological exam: Present: alert, oriented X3, CN II-XII intact Psychiatric exam: Present: normal affect, normal mood Skin exam: Present: warm, dry, intact, normal color. Absent: rash Course Vital Signs 04/18/22 04/18/22 12:39 16:33 Temperature 98.2 F Pulse Rate 66 56 L Respiratory 16 16 Rate Blood Pressure 114/71 99/60 O2 Sat by Pulse 99 Oximetry Medical Decision Making - Medical Decision Making This is a 22-year-old female who presents to the emergency department for hematuria. Lab work was nonactionable the patient has no evidence of impaired kidney function. Urinalysis revealed a significant amount of blood and was unable to be fully evaluated for signs of protein or infection due to the significant amount of blood present. KUB revealed a calcification in the right kidney, most likely a renal calculus. Rapid strep test was negative. C3, C4, and ASO testing ordered. These are send out tests and the results will be followed up on and discussed with the patient. It is possible this is related to a post strep glomerulonephritis or the presence of the right renal calculus. Of note, the patient is not hypertensive or experiencing any edema that can be present with a post strep glomerulonephritis. This could also be related to an other issue altogether. She was given information for follow-up with nephrology and urology. She was also given a list of primary care providers she can contact to become established. I instructed her to do this as soon as possible. Return precautions reviewed in depth, the patient is instructed to return to the emergency department with any new, worsening, or concerning symptoms. Patient verbalized understanding. This case was discussed in detail with the attending ED physician. Presentation, findings, and treatment plan discussed in detail as well. - Lab Data Result diagrams: 04/18/22 14:43 04/18/22 14:43 Lab Results 04/18/22 04/18/22 04/18/22 Range/Units 14:20 14:43 14:43 WBC 3.7 L (3.8-10.6) k/uL RBC 5.12 (3.80-5.40) m/uL Hgb 13.7 (11.4-16.0) gm/dL Hct 43.4 (34.0-46.0) % MCV 84.8 (80.0-100.0) fL MCH 26.7 (25.0-35.0) pg MCHC 31.5 (31.0-37.0) g/dL RDW 13.8 (11.5-15.5) % Plt Count 212 (150-450) k/uL MPV 10.6 Neutrophils % 40 % Lymphocytes % 45 % Monocytes % 8 % Eosinophils % 3 % Basophils % 1 % Neutrophils # 1.5 (1.3-7.7) k/uL Lymphocytes # 1.7 (1.0-4.8) k/uL Monocytes # 0.3 (0-1.0) k/uL Eosinophils # 0.1 (0-0.7) k/uL Basophils # 0.1 (0-0.2) k/uL Sodium 141 (137-145) mmol/L Potassium 5.0 (3.5-5.1) mmol/L Chloride 104 (98-107) mmol/L Carbon Dioxide 23 (22-30) mmol/L Anion Gap 14 mmol/L BUN 11 (7-17) mg/dL Creatinine 0.54 (0.52-1.04) mg/dL Est GFR (CKD-EPI)AfAm >90 (>60 ml/min/1.73 sqM) Est GFR (CKD-EPI)NonAf >90 (>60 ml/min/1.73 sqM) Glucose 85 (74-99) mg/dL Calcium 9.6 (8.4-10.2) mg/dL Total Bilirubin 0.3 (0.2-1.3) mg/dL AST 26 (14-36) U/L ALT 13 (4-34) U/L Alkaline Phosphatase 94 (38-126) U/L Total Protein 7.7 (6.3-8.2) g/dL Albumin 4.7 (3.5-5.0) g/dL HCG, Qual Not Detected Urine Color Brown Urine Appearance Bloody H (Clear) Urine RBC >182 H (0-5) /hpf Urine WBC 16 H (0-5) /hpf Urine Mucus Many H (None) /hpf - Radiology Data Radiology results: report reviewed, image reviewed Disposition Clinical Impression: Hematuria Disposition: HOME SELF-CARE Instructions (If sedation given, give patient instructions): Hematuria (ED) Additional Instructions: Return to the emergency department with any new, worsening, or concerning symptoms. Contact the office for Dr. Estrella, nephrology, on Wednesday as listed below for a follow-up appointment. You can also contact the office for urology, Dr. Gonzalez. The other list of providers are primary care offices. Contact one of them to become established as a new patient for ongoing healthcare management. Is patient prescribed a controlled substance at d/c from ED?: No Referrals: Keial Estrella MD [STAFF PHYSICIAN] - 1-2 days Jacquelyn Huerta MD [STAFF PHYSICIAN] - 1-2 days Monique Myers MD [REFERRING] - 1-2 days None,Stated [Primary Care Provider] - 1-2 days Elsy Rawls MD [STAFF PHYSICIAN] - 1-2 days Delaney Mathew DO [REFERRING] - 1-2 days Jose Manuel Gonzalez MD [STAFF PHYSICIAN] - 1-2 days
[2022-04-18 14:55] LABS: Color,Urine Brown; Mucus,Urine Many /hpf; RBC,Urine >182 /hpf (0-5); WBC,Urine 16 /hpf (0-5)
[2022-04-18 14:56] LABS: Appearance,Urine Bloody (Clear)
[2022-04-18 15:24] LABS: Basophils # (A) 0.1 k/uL (0-0.2); Basophils % (A) 1 %; Eosinophils # (A) 0.1 k/uL (0-0.7); Eosinophils % (A) 3 %; HCT 43.4 % (34.0-46.0); HGB 13.7 gm/dL (11.4-16.0); Lymphocytes # (A) 1.7 k/uL (1.0-4.8); Lymphocytes % (A) 45 %; MCH 26.7 pg (25.0-35.0); MCHC 31.5 g/dL (31.0-37.0); MCV 84.8 fL (80.0-100.0); Mean Platelet Volume 10.6; Monocytes # (A) 0.3 k/uL (0-1.0); Monocytes % (A) 8 %; Neutrophils # (A) 1.5 k/uL (1.3-7.7); Neutrophils % (A) 40 %; Platelet Count 212 k/uL (150-450); RBC 5.12 m/uL (3.80-5.40); RDW 13.8 % (11.5-15.5); WBC 3.7 k/uL (3.8-10.6)
[2022-04-18 15:34] LABS: ALT 13 U/L (4-34); AST 26 U/L (14-36); African American GFR (CKD) >90 (>60 ml/min/1.73 sqM); Albumin 4.7 g/dL (3.5-5.0); Alkaline Phosphatase 94 U/L (38-126); Anion Gap 14 mmol/L; Blood Urea Nitrogen 11 mg/dL (7-17); Calcium 9.6 mg/dL (8.4-10.2); Carbon Dioxide 23 mmol/L (22-30); Chloride 104 mmol/L (98-107); Glucose 85 mg/dL (74-99); Non-African American GFR(CKD) >90 (>60 ml/min/1.73 sqM); Sodium 141 mmol/L (137-145); Total Bilirubin 0.3 mg/dL (0.2-1.3); Total Protein 7.7 g/dL (6.3-8.2)
[2022-04-18 16:11] LABS: HCG,Qualitative Serum Not Detected
[2022-04-18 16:41] VITALS: BP 99/60; PULSE 56
--- NOTE | 2022-04-18 16:48 | XR ---
EXAMINATION TYPE: XR KUB DATE OF EXAM: 04/18/2022 COMPARISON: 06/19/2018 HISTORY: Hematuria TECHNIQUE: 2 views upright FINDINGS: There is no sign of intestinal obstruction or pneumoperitoneum. There is irregular 5 mm taylor cification over the lower pole right kidney. Lung bases are clear. No evidence of abdominal mass. IMPRESSION: There is likely right renal calculus which is new compared to old exam. Nonacute abdomen.
== END 2022-04-18 17:10 | disposition home or self-care (01) ==
LOC: EC 12:22
DX: R31.9 Hematuria, unspecified (principal); K21.9 Gastro-esophageal reflux disease without esophagitis; Z79.899 Other long term (current) drug therapy; Z91.040 Latex allergy status
CPT/HCPCS: 36415; 74018; 80053; 81001; 84703; 85025; 86060; 86160; 87081; 87086; 87430; 87651; 99283

== ENCOUNTER 2025-02-22 12:00 | Emergency (ER) | payer OTHER ==
--- NOTE | 2025-02-22 12:27 | ED ---
Female Urogenital HPI - General Chief complaint: Urogenital Stated complaint: Chest Pain Time Seen by Provider: 02/22/25 12:07 Source: patient, RN notes reviewed Mode of arrival: ambulatory Limitations: no limitations - History of Present Illness Initial comments: This is a 24-year-old female who presents to the emergency department for abdominal pain and back pain. States that yesterday she started to notice that whenever she would urinate she would get pain in her right mid to lower back and the right lower quadrant. While she was having pain in these areas she did not have any burning with urination. The pain is is still present when she is not urinating, however it is less severe. Denies any nausea or vomiting associated with this. She does have a history of kidney stones a couple of years ago, however states that she was in the period and cannot recall if it was a similar pain or not. Last Menstrual Period: 02/15/25 - Related Data Home Medications Medication Instructions Recorded Confirmed Pantoprazole [Protonix] 20 mg PO DAILY 12/01/21 12/01/21 Promethazine HCl 12.5 mg PO DAILY 12/01/21 12/01/21 Previous Rx's Medication Instructions Recorded Ibuprofen [Motrin] 600 mg PO Q6HR PRN #30 tab 12/03/21 Ketorolac [Toradol] 10 mg PO Q6HR PRN #15 tab 02/22/25 Ondansetron Odt [Zofran Odt] 4 mg PO Q8HR PRN #15 tab 02/22/25 Allergies Allergy/AdvReac Type Severity Reaction Status Date / Time latex Allergy Rash/Hives Verified 02/22/25 12:05 Review of Systems ROS Statement: Those systems with pertinent positive or pertinent negative responses have been documented in the HPI. ROS Other: All systems not noted in ROS Statement are negative. Past Medical History Past Medical History: GERD/Reflux Additional Past Medical History / Comment(s): irregular bowel movements: diarrhea for 2 weeks, then went over 1 month with no bowel movement, then started having bowel movements with blood, last bowel movement today, History of Any Multi-Drug Resistant Organisms: None Reported Past Surgical History: No Surgical Hx Reported Additional Past Surgical History / Comment(s): WISDOM TEETH Past Anesthesia/Blood Transfusion Reactions: No Reported Reaction Past Psychological History: Anxiety, Depression Smoking Status: Current some day smoker, Vaper Past Alcohol Use History: None Reported Past Drug Use History: None Reported - Past Family History Mother Family Medical History: No Reported History General Exam Limitations: no limitations General appearance: alert, in no apparent distress Head exam: Present: atraumatic, normocephalic, normal inspection Respiratory exam: Present: normal lung sounds bilaterally. Absent: respiratory distress, wheezes, rales, rhonchi, stridor Cardiovascular Exam: Present: regular rate, normal rhythm GI/Abdominal exam: Present: soft, tenderness (Right mid to lower abdomen). Absent: distended Neurological exam: Present: alert, oriented X3, CN II-XII intact Psychiatric exam: Present: normal affect, normal mood Skin exam: Present: warm, dry, intact, normal color. Absent: rash Course Vital Signs 02/22/25 02/22/25 02/22/25 12:03 13:25 15:34 Temperature 98.0 F 98.1 F Pulse Rate 85 63 66 Respiratory 18 20 20 Rate Blood Pressure 130/79 122/83 109/63 O2 Sat by Pulse 99 99 100 Oximetry Medical Decision Making - Medical Decision Making This is a 24-year-old female who presents to the emergency department for abdominal pain and back pain. Was pt. sent in by a medical professional or institution? @ -No Did you speak to anyone other than the patient for history? @ -No Did you review nursing and triage notes? @ -Yes, and I agree, it is accurate with regards to the patient's symptoms. Were old charts reviewed? @ -No Differential Diagnosis? @ -Differential Abdominal Pain Women: Appendicitis, Cholecystitis, diverticulosis, ischemic bowel, pancreatitis, hepatitis, UTI, gastroenteritis, AAA, incarcerated hernia, bowel obstruction, constipation, inflammatory bowel, hepatitis, peptic ulcer disease, splenic infarction, perforated viscus, vulvitis, ovarian torsion, PID, kidney stone, placenta abruption, this is not meant to be an all-inclusive list EKG interpreted by me (3pts min.)? @ -Not obtained X-rays interpreted by me (1pt min.)? @ -Not obtained CT interpreted by me (1pt min.)? @ -CT scan of the abdomen and pelvis obtained. My interpretation identifies no ureteral calculus. U/S interpreted by me (1pt. min.)? @ -Transvaginal ultrasound obtained. My interpretation identifies no evidence of an ovarian torsion. Ultrasound of the appendix obtained. My interpretation is unable to identify the appendix. What testing was considered but not performed? (CT, X-rays, U/S, labs)? Why? @ -None What meds were considered but not given? Why? @ -None Did you discuss the management of the patient with other professionals? @ -No Did you reconcile home meds? @ -No Was smoking cessation discussed for >3mins.? @ -No Was critical care preformed (if so, how long)? @ -No Were there social determinants of health that impacted care today? How? (Homelessness, low income, unemployed, alcoholism, drug addiction, transportation, low edu. Level, literacy, decrease access to med. care, senior care, rehab)? @ -No Was there de-escalation of care discussed even if they declined? (Discuss DNR or withdrawal of care, Hospice)? @ -No What co-morbidities impacted this encounter? (DM, HTN, Smoking, COPD, CAD, Cancer, CVA, Hep., AIDS, mental health diagnosis, sleep apnea, morbid obesity)? @ -None Was patient admitted / discharged? @ -Discharged. Lab work unremarkable. Urinalysis demonstrates trace blood wit hout elevation of RBCs or signs of infection. CT scan of the abdomen and pelvis obtained. She has punctate bilateral nonobstructing renal stones. She also has a 3.8 cm right ovarian cyst and follow-up with ultrasound is advised. They could not identify the appendix, however there was no dilated tubular structure or suspicious inflammatory changes to suggest this. We subsequently obtained an ultrasound for further evaluation. We did both a transvaginal and abdominal ultrasound to see if the appendix could be visualized on that. However, they were also unable to identify the appendix on this. Given the lack of inflammatory changes and otherwise unremarkable laboratory studies, appendicitis is unlikely. Transvaginal ultrasound does demonstrate a complex right ovarian cyst thought to be hemorrhagic. No evidence of an ovarian torsion was identified. Findings reviewed with the patient in that the ovarian cyst is the likely cause of her symptoms. Symptoms were well-controlled in the emergency department. Toradol and Zofran prescribed for further management. Otherwise advised follow-up with her [facility]. Patient discharged home in stable condition. Case discussed with ED attending Dr. Galloway. Return precautions reviewed in depth, the patient is instructed to return to the emergency department with any new, worsening, or concerning symptoms. Patient verbalized understanding. Undiagnosed new problem with uncertain prognosis? @ -None Drug Therapy requiring intensive monitoring for toxicity (Heparin, Nitro, Insulin, Cardizem)? @ -None Were any procedures done? @ -None Diagnosis/symptom? @ -Right ovarian cyst, nausea Acute, or Chronic, or Acute on Chronic? @ -Acute Uncomplicated (without systemic symptoms) or Complicated (systemic symptoms)? @ -Uncomplicated Side effects of treatment? @ -None Exacerbation, Progression, or Severe Exacerbation] @ -Not applicable Poses a threat to life or bodily function? @ -No - Lab Data Result diagrams: 02/22/25 12:31 02/22/25 12:31 Lab Results 02/22/25 02/22/25 02/22/25 Range/Units 12:28 12:28 12:31 WBC 4.61 (4.50-10.00) 10*3/uL RBC 4.19 (4.10-5.20) 10*6/uL Hgb 12.7 (12.0-15.0) g/dL Hct 37.3 (37.2-46.3) % MCV 89.0 (80.0-97.0) fL MCH 30.3 (27.0-32.0) pg MCHC 34.0 (32.0-37.0) g/dL Plt Count 197 (140-440) 10*3/uL MPV 12.6 H (9.5-12.2) fL Immature Gran % (Auto) 0.2 % Neutrophils % 49.6 % Lymphocytes % 40.8 % Monocytes % 7.2 % Eosinophils % 1.5 % Basophils % 0.7 % Immature Gran # 0.01 (0.00-0.04) 10*3/uL Neutrophils # 2.29 (1.80-7.70) 10*3/uL Lymphocytes # 1.88 (0.90-5.00) 10*3/uL Monocytes # 0.33 (0.20-1.00) 10*3/uL Eosinophils # 0.07 (0.04-0.35) 10*3/uL Basophils # 0.03 (0.00-0.10) 10*3/uL Sodium (137-145) mmol/L Potassium (3.5-5.1) mmol/L Chloride (98-107) mmol/L Carbon Dioxide (22-30) mmol/L Anion Gap mmol/L BUN (7-17) mg/dL Creatinine (0.52-1.04) mg/dL Est GFR (CKD-EPI)AfAm (>60 ml/min/1.73 sqM) Est GFR (CKD-EPI)NonAf (>60 ml/min/1.73 sqM) Glucose (74-99) mg/dL Plasma Lactic Acid Genaro (0.7-2.0) mmol/L Calcium (8.4-10.2) mg/dL Total Bilirubin (0.2-1.3) mg/dL AST (14-36) U/L ALT (4-34) U/L Alkaline Phosphatase (38-126) U/L Total Protein (6.3-8.2) g/dL Albumin (3.5-5.0) g/dL Urine Color Yellow Urine Appearance Clear (Clear) Urine pH 5.5 (5.0-8.0) Ur Specific Wells 1.021 (1.001-1.035) Urine Protein Negative (Negative) Urine Glucose (UA) Negative (Negative) Urine Ketones Negative (Negative) Urine Blood Trace H (Negative) Urine Nitrite Negative (Negative) Urine Bilirubin Negative (Negative) Urine Urobilinogen <2.0 (<2.0) mg/dL Ur Leukocyte Esterase Negative (Negative) Urine RBC <1 (0-5) /hpf Urine WBC 1 (0-5) /hpf Ur Squamous Epith Cells 1 (0-4) /hpf Hyaline Casts 1 (0-2) /lpf Urine Mucus Many H (None) /hpf Urine HCG, Qual Not Detected (Not Detectd) 02/22/25 02/22/25 Range/Units 12:31 12:31 WBC (4.50-10.00) 10*3/uL RBC (4.10-5.20) 10*6/uL Hgb (12.0-15.0) g/dL Hct (37.2-46.3) % MCV (80.0-97.0) fL MCH (27.0-32.0) pg MCHC (32.0-37.0) g/dL Plt Count (140-440) 10*3/uL MPV (9.5-12.2) fL Immature Gran % (Auto) % Neutrophils % % Lymphocytes % % Monocytes % % Eosinophils % % Basophils % % Immature Gran # (0.00-0.04) 10*3/uL Neutrophils # (1.80-7.70) 10*3/uL Lymphocytes # (0.90-5.00) 10*3/uL Monocytes # (0.20-1.00) 10*3/uL Eosinophils # (0.04-0.35) 10*3/uL Basophils # (0.00-0.10) 10*3/uL Sodium 138 (137-145) mmol/L Potassium 3.9 (3.5-5.1) mmol/L Chloride 108 H (98-107) mmol/L Carbon Dioxide 21 L (22-30) mmol/L Anion Gap 9 mmol/L BUN 7 (7-17) mg/dL Creatinine 0.57 (0.52-1.04) mg/dL Est GFR (CKD-EPI)AfAm >90 (>60 ml/min/1.73 sqM) Est GFR (CKD-EPI)NonAf >90 (>60 ml/min/1.73 sqM) Glucose 70 L (74-99) mg/dL Plasma Lactic Acid Genaro 1.1 (0.7-2.0) mmol/L Calcium 8.9 (8.4-10.2) mg/dL Total Bilirubin 0.5 (0.2-1.3) mg/dL AST 20 (14-36) U/L ALT 10 (4-34) U/L Alkaline Phosphatase 42 (38-126) U/L Total Protein 6.6 (6.3-8.2) g/dL Albumin 4.0 (3.5-5.0) g/dL Urine Color Urine Appearance (Clear) Urine pH (5.0-8.0) Ur Specific Wells (1.001-1.035) Urine Protein (Negative) Urine Glucose (UA) (Negative) Urine Ketones (Negative) Urine Blood (Negative) Urine Nitrite (Negative) Urine Bilirubin (Negative) Urine Urobilinogen (<2.0) mg/dL Ur Leukocyte Esterase (Negative) Urine RBC (0-5) /hpf Urine WBC (0-5) /hpf Ur Squamous Epith Cells (0-4) /hpf Hyaline Casts (0-2) /lpf Urine Mucus (None) /hpf Urine HCG, Qual (Not Detectd) - Radiology Data Radiology results: report reviewed, image reviewed Disposition Clinical Impression: Hemorrhagic cyst of right ovary, Nausea Disposition: HOME SELF-CARE Instructions (If sedation given, give patient instructions): Ovarian Cyst (ED), Ruptured Ovarian Cyst (ED) Additional Instructions: Return to the emergency department with any new, worsening, or concerning symptoms. Take the Toradol with Tylenol as needed for pain relief. If you choose to take the Toradol, do not take any other anti-inflammatories such as ibuprofen, take one or the other. You can also apply warm compresses to help with the discomfort. Take the Zofran up to every 8 hours as needed for nausea and vomiting. Follow-up with your primary care provider or your [facility] for reevaluation. You will need follow-up imaging in several weeks to see if this has gone away. Prescriptions: Ketorolac [Toradol] 10 mg PO Q6HR PRN #15 tab PRN Reason: Pain Ondansetron Odt [Zofran Odt] 4 mg PO Q8HR PRN #15 tab PRN Reason: Nausea And Vomiting Is patient prescribed a controlled substance at d/c from ED?: No Referrals: Diogo Gross MD [Primary Care Provider] - 1-2 days Time of Disposition: 15:20
[2025-02-22] MEDS: SODIUM CHLORIDE 0.9% 1,000 ML IV ONE (12:50)
[2025-02-22] MEDS: KETOROLAC 15 MG/ML 1 ML VIAL IVP STA ×2 (12:50→15:28)
[2025-02-22 12:53] LABS: Basophils # (A) 0.03 10*3/uL (0.00-0.10); Basophils % (A) 0.7 %; Eosinophils # (A) 0.07 10*3/uL (0.04-0.35); Eosinophils % (A) 1.5 %; HCT 37.3 % (37.2-46.3); HGB 12.7 g/dL (12.0-15.0); Lymphocytes # (A) 1.88 10*3/uL (0.90-5.00); Lymphocytes % (A) 40.8 %; MCH 30.3 pg (27.0-32.0); MCHC 34.0 g/dL (32.0-37.0); MCV 89.0 fL (80.0-97.0); Monocytes # (A) 0.33 10*3/uL (0.20-1.00); Monocytes % (A) 7.2 %; Neutrophils # (A) 2.29 10*3/uL (1.80-7.70); Neutrophils % (A) 49.6 %; Platelet Count 197 10*3/uL (140-440); RBC 4.19 10*6/uL (4.10-5.20); RDW 11.9 % (11.5-14.5); WBC 4.61 10*3/uL (4.50-10.00)
[2025-02-22 13:06] LABS: ALT 10 U/L (4-34); AST 20 U/L (14-36); African American GFR (CKD) >90 (>60 ml/min/1.73 sqM); Albumin 4.0 g/dL (3.5-5.0); Alkaline Phosphatase 42 U/L (38-126); Anion Gap 9 mmol/L; Blood Urea Nitrogen 7 mg/dL (7-17); Calcium 8.9 mg/dL (8.4-10.2); Carbon Dioxide 21 mmol/L (22-30); Chloride 108 mmol/L (98-107); Glucose 70 mg/dL (74-99); Non-African American GFR(CKD) >90 (>60 ml/min/1.73 sqM); Potassium 3.9 mmol/L (3.5-5.1); Sodium 138 mmol/L (137-145); Total Protein 6.6 g/dL (6.3-8.2)
[2025-02-22 13:24] LABS: Bilirubin,Urine Negative (Negative); Blood,Urine Trace (Negative); Color,Urine Yellow; Glucose,Urine (UA) Negative (Negative); Hyaline Casts,Urine 1 /lpf (0-2); Ketones,Urine Negative (Negative); Leukocyte Esterase,Urine Negative (Negative); Mucus,Urine Many /hpf; Nitrite,Urine Negative (Negative); PH, Urine 5.5 (5.0-8.0); Protein,Urine Negative (Negative); RBC,Urine <1 /hpf (0-5); Specific Gravity,Urine 1.021 (1.001-1.035); Squamous Epithelial Cell,Urine 1 /hpf (0-4); Urobilinogen,Urine <2.0 mg/dL (<2.0); WBC,Urine 1 /hpf (0-5)
[2025-02-22] MEDS: ONDANSETRON 4 MG/2 ML VIAL IVP STA (13:34)
[2025-02-22 13:36] VITALS: RESP 20
[2025-02-22] MEDS: ACETAMINOPHEN TAB 500 MG TAB PO STA (13:40)
--- NOTE | 2025-02-22 13:57 | CT ---
EXAMINATION TYPE: CT abdomen pelvis wo con DATE OF EXAM: 02/22/2025 12:46 PM COMPARISON: None. CLINICAL INDICATION: Female, 24 years old with history of Right flank and RLQ pain, RLQ PAIN AND RIGH T FLANK PAIN TECHNIQUE: Axial images were obtained from above the diaphragm to the pubic rami in the axial plane a t 5 mm thick sections. Reconstructed images are reviewed on the computer in the coronal plane. CONTRAST: mL of . Study performed without Oral Contrast DLP: 263.3 mGycm, Automated exposure control for dose reduction was used. FINDINGS: Limited CT sections are obtained the lung bases. The lung bases are clear. CT ABDOMEN: Liver: Normal Spleen: Normal Pancreas: Normal Adrenal glands: The adrenal glands are normal. Gallbladder: Normal Kidneys: No masses are evident. No hydronephrosis is present. No cysts are present. Nonobstructing punctate renal stones are present bilaterally. Aorta: Normal Inferior vena cava: Normal. CT PELVIS: Loops of bowel within the abdomen and pelvis are normal. There are loops of bowel which are incom pletely distended or lack oral contrast limiting their evaluation. Appendix: Not identified. No dilated tubular structure or inflammatory changes. Urinary bladder: Normal. Genitourinary structures: There is a 3.8 cm right ovarian cyst. Consider additional evaluation with u ltrasound. Osseous structures: No suspicious lytic or sclerotic lesions. IMPRESSION: 1. Punctate bilateral nonobstructing renal stones. 2. 3.8 cm right ovarian cyst. This could be further evaluated with ultrasound. 3. Nonvisualization of the appendix. No dilated tubular structure or inflammatory changes are evident suggest acute appendicitis. Clinical management is suspected appendicitis recommended. [facility], , 02/22/2025 1:55 PM
--- NOTE | 2025-02-22 15:04 | US ---
EXAMINATION TYPE: US abdomen APPY DATE OF EXAM: 02/22/2025 COMPARISON: CT: Today CLINICAL INDICATION: Female, 24 years old with history of RLQ pain, unable to visualize appendix on C T; RLQ pain TECHNIQUE: Multiple sonographic images of the right lower quadrant were obtained with graded compress ion with grayscale and color Doppler imaging. FINDINGS: APPENDIX Is the appendix seen in its entirety from the proximal cecum to distal end: No Is there inflammatory changes or free fluid present: No FAGOT MAKER NOTES: Appendix not visualized due to excessive bowel gas. No rebound tenderness noted IMPRESSION: 1. Nonvisualization the appendix. Clinical management of any suspected appendicitis will be required. [facility], , 02/22/2025 3:02 PM
--- NOTE | 2025-02-22 15:08 | US ---
EXAMINATION TYPE: US transvaginal DATE OF EXAM: 02/22/2025 COMPARISON: CT: Today CLINICAL INDICATION: Female, 24 years old with history of RLQ pain, cyst on CT; RLQ pain x 2 days TECHNIQUE: Transvaginal (TV). Doppler imaging: Color Doppler Images were obtained. Spectral doppler images were obtained. FINDINGS: Date of LMP: 02/08/2025 EXAM MEASUREMENTS: Uterus: 8.9 x 4.6 x 5.3 cm Endometrial Stripe: 0.3 cm Right Ovary: 4.3 x 3.9 x 4.5 cm Left Ovary: 3.3 x 1.7 x 2.3 cm 1. Uterus: Anteverted wnl 2. Endometrium: wnl 3. Right Ovary: Anechoic area with internal debris noted within the right ovary measuring 4.0 x 3.7 x 3.7 cm. Hyperechoic area within this area measures 1.3 x 0.6 x 1.6 cm 4. Left Ovary: wnl Spectral, color and waveform doppler imaging shows good arterial and venous flow within the ovaries ; there is no evidence for ovarian torsion. 5. Bilateral Adnexa: Right adnexa wnl. Dilated vessels seen within the left adnexa measuring up to 0 .5 cm 6. Posterior cul-de-sac: Free fluid visualized IMPRESSION: 1. Mildly complex right ovarian cyst may be a hemorrhagic cyst. Follow-up in 6 months is recommended . O-Rads 2 O-RADS 2021 [email or web address] [facility], , 02/22/2025 3:06 PM
[2025-02-22] MEDS: MORPHINE SULFATE 4 MG/ML SYRINGE IVP STA (15:17)
[2025-02-22] MEDS: ACET/COD 300 MG/30 MG STARTER PACK TAB BTL PO STA (15:26)
[2025-02-22] MEDS: ONDANSETRON 4 MG ODT STARTER PACK TAB BTL PO STA (15:27)
[2025-02-22 15:35] VITALS: BP 109/63; PULSE 66; TEMP 98.1
== END 2025-02-22 15:35 | disposition home or self-care (01) ==
LOC: EC 12:00
DX: N83.201 Unspecified ovarian cyst, right side (principal); R11.0 Nausea; F17.290 Nicotine dependence, other tobacco product, uncomplicated; Z91.040 Latex allergy status
CPT/HCPCS: 36415; 80053; 83605; 85025; 81001; 81025; 93975; 76705; 76830; 74176; 99285; 96374; 96375; 96376; 96361; J2405; J1885; S0119